=== PATIENT | female | born 1955 | race Caucasian/White ===

== ENCOUNTER 2020-10-10 17:31 | Emergency (ER) | payer MEDICARE ==
[2020-10-10] MEDS ORDERED: Ondansetron PF 4 MG/2 ML Vial ONE (17:34)
[2020-10-10] MEDS ORDERED: Ketorolac Tromethamine 30 MG/ML VIAL ONE (17:35)
[2020-10-10] MEDS ORDERED: methylPREDNISolone Sod Succ/PF 125 MG/2 ML VIAL ONE (17:35)
== END 2020-10-10 18:46 | disposition home or self-care (01) ==
LOC: BURERS 17:31
DX: T63.441A Toxic effect of venom of bees, accidental (unintentional), initial encounter (principal); R11.2 Nausea with vomiting, unspecified
CPT/HCPCS: 96374; 96375; J1885; J2405; J2930